=== PATIENT | male | born 1995 | race African-American/Black ===

== ENCOUNTER 2019-11-08 20:23 | Emergency (ER) | payer MEDICAID, OTHER ==
[~2019-11-08] VITALS: Ht 170.2 cm; Wt 54.9 kg
[2019-11-08] MEDS ORDERED: ALBUTEROL SULF 2.5 MG/0.5ML(0.5%) NEB SOLN NEB ONE (21:00)
[2019-11-08] MEDS ORDERED: IPRATROPIUM BROM 0.5 MG/2.5ML INH SOL NEB ONE (21:00)
[2019-11-08] MEDS ORDERED: methylPREDNISolone SOD SUCC 125 MG/2 ML VL IM ONE (22:45)
[2019-11-09 00:12] VITALS: BP 123/82
== END 2019-11-09 00:17 | disposition home or self-care (01) ==
LOC: ER 20:25
DX: J45.901 Unspecified asthma with (acute) exacerbation (principal)
CPT/HCPCS: 94640; 96372; 99283; J2930; J7644